=== PATIENT | female | born 1990 | race Caucasian/White ===

== ENCOUNTER → 2019-12-30 14:39 | Outpatient (CLI) | payer MEDICAID, SELFPAY ==
--- NOTE | 2019-12-30 14:42 | DI.US.S_ITS ---
PROCEDURE: US OB >= 14 WEEKS FETUS INDICATIONS: 20 week anatomy scan OUTSIDE/PRIOR DATING DATA: Last menstrual period (LMP): Unknown. LMP-based estimated date of delivery (ANIBAL): Unknown. First dating scan (date and location): 10/22/19. Estimated date of delivery (ANIBAL) from first dating scan: 04/22/20. TECHNIQUE: Real-time scanning was performed of the fetuses, with image documentation and biometric measurements. Endovaginal scanning: Not performed COMPARISON: [facility], , OB <= 14 WEEKS FETUS, 12/29/2019, 8:35. [facility], , OB >= 14 WEEKS FETUS, 12/16/2019, 8:21. FINDINGS: General: An intrauterine dichorionic and diamniotic twin is present, as evidenced by separate placentas, differing sexes, or an intervening membrane of greater than 2 mm. Maternal cervical canal: 4.5 cm long. Normal lower limit is 2.5 cm. FETUS A: Fetus is located on the maternal right side, and is in breech presentation. Largest amniotic fluid pocket: 3.7 cm; normal range is 2-8 cm. Placental position is posterior/right lateral, without previa. heart rate: 155 beats per minute. biometrics: Biparietal diameter: 5.9 cm, 24 weeks, zero day Head circumference: 21.6 cm, 23 weeks, 4 days Abdominal circumference: 19.4 cm, 24 weeks, zero day Femur length: 4.3 cm, 24 weeks, 2 days Estimated gestational age from initial scan: 23 weeks, 5 days Composite gestational age from present scan: 24 weeks, zero day Estimated weight and percentile: 646 g, 53% Measurement variability for biometric dating: +/- 7 days from 14 weeks to 15 weeks 6 days gestation, +/- 10 days from 16 weeks to 21 weeks 6 days gestation, +/- 2 weeks from 22 weeks to 27 weeks 6 days gestation, +/- 3 weeks for 28 weeks gestation or later. weight reference: 4500 g or EFW >90/95% is considered macrosomia or large for gestational age. EFW <10% is small for gestational age. EFW 5% or less is considered intra-uterine growth restriction. Anatomic survey: Neuro: Ventricles are normal at less than 10 mm. Cisterna magna is normal at 3-11 mm. Cerebellum is normal in size and morphology. Nuchal skin fold: Normal at less than 6 mm between 14 and 21 weeks gestational age. Face: Nose and lips, facial profile are normal. Spine: No evidence for spina bifida. Heart: 4 chambered heart is present, with normal ventricular outflow tracts. Diaphragm: Diaphragm is intact. Stomach: Left-sided stomach is present. Kidneys: No hydronephrosis. Normal ranges are less than 5 mm in 2nd trimester, less than 7 mm in 3rd trimester. Cord: 3 vessel cord has orthotopic insertion. Bladder: Normal in size. Extremities: All 4 extremities are visualized. FETUS B: Fetus is located on the maternal left side, and is in breech presentation. Largest amniotic fluid pocket: 3.1 cm; normal range is 2-8 cm. Placental position is posterior left lateral, without previa. heart rate: 168 beats per minute. biometrics: Biparietal diameter: 6 cm, 24 weeks, 4 days Head circumference: 22 cm, 24 weeks, one day Abdominal circumference: 19.6 cm, 24 weeks, 2 days Femur length: 4.3 cm, 24 weeks, 2 days Estimated gestational age from initial scan: 23 weeks, 5 days. Composite gestational age from present scan: 24 weeks, one day Estimated weight and percentile: 678 g, 68% Measurement variability for biometric dating: +/- 7 days from 14 weeks to 15 weeks 6 days gestation, +/- 10 days from 16 weeks to 21 weeks 6 days gestation, +/- 2 weeks from 22 weeks to 27 weeks 6 days gestation, +/- 3 weeks for 28 weeks gestation or later. weight reference: 4500 g or EFW >90/95% is considered macrosomia or large for gestational age. EFW <10% is small for gestational age. EFW 5% or less is considered intra-uterine growth restriction. Anatomic survey: Neuro: Ventricles are normal at less than 10 mm. Cisterna magna is normal at 3-11 mm. Cerebellum is normal in size and morphology. Nuchal skin fold: Normal at less than 6 mm between 14 and 21 weeks gestational age. Face: Nose and lips, facial profile are normal. Spine: No evidence for spina bifida. Heart: 4 chambered heart is present, with normal ventricular outflow tracts. Diaphragm: Diaphragm is intact. Stomach: Left-sided stomach is present. Kidneys: No hydronephrosis. Normal ranges are less than 5 mm in 2nd trimester, less than 7 mm in 3rd trimester. Cord: 3 vessel cord has orthotopic insertion. Bladder: Normal in size. Extremities: All 4 extremities are visualized. IMPRESSION: 1. Twin live intrauterine as described in detail above. Normal amount of amniotic fluid. Normal growth. 2. Normal anatomic survey for both fetus. Dictated by: Ministerio Zamora M.D. on 12/31/2019 at 9:41 Approved by: Ministerio Zamora M.D. on 12/31/2019 at 9:50
== END ==
PROVIDERS: Referring Provider Specialist; Visit Provider Specialist
DX: Z36.89 Encounter for other specified antenatal screening (principal); O30.049 Twin pregnancy, dichorionic/diamniotic, unspecified trimester; Z3A.24 24 weeks gestation of pregnancy
CPT/HCPCS: 76811; 76812

== ENCOUNTER → 2020-01-12 14:31 | Outpatient (CLI) | payer MEDICAID, SELFPAY ==
[2020-01-12 16:36] LABS: Hematocrit 35.8 % (36-46); Hemoglobin 12.6 g/dL (12.0-16.0)
[2020-01-12 17:15] LABS: GTT (PREG) 1 Hour PP 50gm Dose 164 mg/dL (76-139)
== END ==
PROVIDERS: Referring Provider Specialist; Visit Provider Specialist
DX: Z34.02 Encounter for supervision of normal first pregnancy, second trimester (principal); Z3A.24 24 weeks gestation of pregnancy
CPT/HCPCS: 36415; 82950; 85014; 85018; 86850

== ENCOUNTER → 2020-01-16 08:22 | Outpatient (CLI) | payer MEDICAID, SELFPAY ==
[2020-01-16 10:39] LABS: Glucose Fasting Gestational 64 mg/dL (76-95)
[2020-01-16 11:22] LABS: Glucose 1 Hour Gest 119 mg/dL (76-180)
[2020-01-16 11:53] LABS: Glucose Tol Interp,Gestational INTERPRETATION
[2020-01-16 12:23] LABS: Glucose 2 Hour Gest 116 mg/dL (76-155)
[2020-01-16 12:45] LABS: Glucose 3 Hour Gest 92 mg/dL (76-140)
== END ==
PROVIDERS: Referring Provider Specialist; Visit Provider Specialist
DX: O99.810 Abnormal glucose complicating pregnancy (principal)
CPT/HCPCS: 36415; 82951; 82952

== ENCOUNTER → 2020-03-19 11:23 | Outpatient (CLI) | payer MEDICAID, SELFPAY ==
[2020-03-20 17:30] LABS: Strep Grp B PCR NEG for Grp B Strep
== END ==
PROVIDERS: Visit Provider Specialist
DX: Z34.03 Encounter for supervision of normal first pregnancy, third trimester (principal); Z3A.35 35 weeks gestation of pregnancy
CPT/HCPCS: 87653

== ENCOUNTER 2020-03-19 11:53 | Outpatient (CLI) | payer MEDICAID, SELFPAY ==
--- NOTE | 2020-03-19 12:30 | PM.OBTRLD ---
Visit Information Visit Information Date of evaluation: 03/19/20 Primary OB Provider: Cristina Jackson Reason for Evaluation: Yes non-stress test non-stress test reason: other (Twin gestation) Vital Signs Vital Signs: Blood pressure 120/70, pulse of 82, temperature 97.6? 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) special ana needs: Yes ( [employer]- [employer] [place]) do you feel safe at home: Yes Smoking Status: Never smoker substance use type: marijuana (cutting back) well-balanced diet: daily or most days Type(s) of exercise: walking Evaluation Evaluation Baseline heart rate: 150 (Both) Variability: Moderate (11-25) (Both) monitor accelerations: Present (Both) monitor decelerations: Absent (Both) Contraction Frequency (minutes): 0 Category of Tracing: I (Both) Diagnosis, Plan/Disposition Final Diagnosis (1) Dichorionic diamniotic twin gestation: Status: Acute (2) 35 weeks gestation of : Status: Acute Plan/Disposition Plan: Reactive nonstress test OB Disposition: home
== END 2020-03-19 12:30 | disposition home or self-care (01) ==
LOC: LABOR 12:01 → OB 03-22 15:24
PROVIDERS: Referring Provider Specialist; Visit Provider Specialist
DX: O30.043 Twin pregnancy, dichorionic/diamniotic, third trimester (principal); Z3A.35 35 weeks gestation of pregnancy
CPT/HCPCS: 59025; 87653; G0378; G0379

== ENCOUNTER 2020-03-26 14:30 | Outpatient (CLI) | payer MEDICAID, SELFPAY ==
--- NOTE | 2020-03-26 15:11 | P.TNLD_ITS ---
Visit Information Visit Information Date of evaluation: 03/26/20 Primary OB Provider: Cristina Jackson Reason for Evaluation: Yes non-stress test non-stress test reason: other (Twins at 36 weeks) [facility] Medical History (Updated 03/26/20 @ 15:13 by Cristina Jackson MD) Acne (Chronic) Asthma (Chronic) Chicken pox (Resolved) Surgical History (Updated 11/18/19 @ 20:58 by Monica Strong) Anesthesia (Resolved) H/O breast biopsy (Acute ~07/2008) Family History (Updated 11/18/19 @ 20:59 by Monica Strong) Father Hypothyroid Grandmother Diabetes mellitus Social History marital status: unmarried,living together household members: significant other lives independently: Yes housing: house pets and animals: Yes (Cat) 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) special ana needs: Yes ( [employer]- [employer] [place]) do you feel safe at home: Yes Smoking Status: Never smoker substance use type: marijuana (cutting back) well-balanced diet: daily or most days Type(s) of exercise: walking Evaluation Evaluation Baseline heart rate: 130 (Both) Variability: Moderate (11-25) (Both) monitor accelerations: Present (Both) monitor decelerations: Absent (Both) Contraction Frequency (minutes): 0 Category of Tracing: I (Both) Diagnosis, Plan/Disposition Final Diagnosis (1) Dichorionic diamniotic twin gestation: Status: Acute (2) 36 weeks gestation of : Status: Acute Plan/Disposition Plan: Weekly follow-up OB Disposition: home
== END 2020-03-26 15:16 | disposition home or self-care (01) ==
LOC: OB 03-29 10:46
PROVIDERS: Referring Provider Specialist; Visit Provider Specialist
DX: O30.043 Twin pregnancy, dichorionic/diamniotic, third trimester (principal); Z3A.36 36 weeks gestation of pregnancy
CPT/HCPCS: 59025; G0378; G0379

== ENCOUNTER → 2020-03-29 15:16 | Outpatient (CLI) | payer MEDICAID, SELFPAY ==
[2020-03-29 16:19] LABS: Add Manual Diff / Slide Review NO; Basophils Absolute Auto 0 /uL (0-100); Basophils Percent Auto 0.3 % (0-2); Eosinophils Absolute Auto 0 /uL (0-450); Eosinophils Percent Auto 0.4 % (2-4); Hematocrit 34.7 % (36-46); Hemoglobin 12.1 g/dL (12.0-16.0); Lymphocytes Absolute Auto 1500 /uL (1100-4500); Lymphocytes Percent Auto 17.3 % (25-40); Mean Corpuscular HGB Conc 34.8 % (30-36); Mean Corpuscular Hemoglobin 32.9 PG (26-34); Mean Corpuscular Volume 94.4 fL (80-100); Monocytes Absolute Auto 600 /uL (0-900); Monocytes Percent Auto 6.7 % (3-14); Neutrophils Absolute Auto 6700 /uL (1500-7000); Neutrophils Percent Auto 75.3 % (50-75); Platelet Count 132 X10^3/uL (150-400); Red Blood Cell Count 3.68 X10^6/uL (4.0-5.2)
[2020-03-29 16:33] LABS: Alanine Aminotransferase 10 IU/L (<35); Aspartate Aminotransferase 24 IU/L (14-36); BUN Creatinine Ratio 17.9 (6-22); Blood Urea Nitrogen 10 mg/dL (7-17); Estimated Glomerular Filt Rate > 60.0 mL/min (>60); Uric Acid 5.1 mg/dL (2.5-6.2)
== END ==
PROVIDERS: Referring Provider Specialist; Visit Provider Specialist
DX: O16.3 Unspecified maternal hypertension, third trimester (principal)
CPT/HCPCS: 36415; 82565; 84450; 84460; 84520; 84550; 85025

== ENCOUNTER 2020-04-02 14:34 | Outpatient (CLI) | payer MEDICAID, SELFPAY ==
--- NOTE | 2020-04-02 14:59 | P.TNLD_ITS ---
Visit Information Visit Information Date of evaluation: 04/02/20 Primary OB Provider: Cristina Jackson Reason for Evaluation: Yes non-stress test non-stress test reason: hypertension/pre-eclampsia and other (37 week twins) Vital Signs Vital Signs: Blood pressure 132/85, pulse of 80, [facility] Medical History (Updated 04/02/20 @ 15:00 by Cristina Jackson MD) Acne (Chronic) Asthma (Chronic) Chicken pox (Resolved) Surgical History (Updated 11/18/19 @ 20:58 by Monica Strong) Anesthesia (Resolved) H/O breast biopsy (Acute ~07/2008) Family History (Updated 11/18/19 @ 20:59 by Monica Strong) Father Hypothyroid Grandmother Diabetes mellitus Social History marital status: unmarried,living together household members: significant other lives independently: Yes housing: house pets and animals: Yes (Cat) 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) special ana needs: Yes ( [employer]- [facility] [employer] [place]) do you feel safe at home: Yes Smoking Status: Never smoker substance use type: marijuana (cutting back) well-balanced diet: daily or most days Type(s) of exercise: walking Evaluation Evaluation Baseline heart rate: 130 (Both ) Variability: Moderate (11-25) (Both) monitor accelerations: Present (Both) monitor decelerations: Absent (Both) Contraction Frequency (minutes): 0 Diagnosis, Plan/Disposition Final Diagnosis (1) 37 weeks gestation of : Status: Acute (2) Hypertension affecting in third trimester: Status: Acute (3) Dichorionic diamniotic twin gestation: Status: Acute Plan/Disposition Plan: Patient is scheduled for induction in 5 days OB Disposition: home
== END 2020-04-02 15:00 | disposition home or self-care (01) ==
LOC: LABOR 15:31 → OB 04-05 15:28
PROVIDERS: Referring Provider Specialist; Visit Provider Specialist
DX: O30.043 Twin pregnancy, dichorionic/diamniotic, third trimester (principal); O16.3 Unspecified maternal hypertension, third trimester; Z3A.37 37 weeks gestation of pregnancy
CPT/HCPCS: 36415; 59025; 82565; 84450; 84460; 84520; 84550; 85025; G0378; G0379

== ENCOUNTER → 2020-04-02 16:19 | Outpatient (CLI) | payer MEDICAID, SELFPAY ==
[2020-04-02 16:50] LABS: Add Manual Diff / Slide Review NO; Basophils Absolute Auto 100 /uL (0-100); Basophils Percent Auto 0.6 % (0-2); Eosinophils Absolute Auto 0 /uL (0-450); Eosinophils Percent Auto 0.3 % (2-4); Hematocrit 34.7 % (36-46); Lymphocytes Absolute Auto 1700 /uL (1100-4500); Lymphocytes Percent Auto 18.4 % (25-40); Mean Corpuscular HGB Conc 34.6 % (30-36); Mean Corpuscular Hemoglobin 32.7 PG (26-34); Mean Corpuscular Volume 94.6 fL (80-100); Monocytes Absolute Auto 700 /uL (0-900); Monocytes Percent Auto 7.1 % (3-14); Neutrophils Absolute Auto 7000 /uL (1500-7000); Neutrophils Percent Auto 73.6 % (50-75); Platelet Count 127 X10^3/uL (150-400); Red Blood Cell Count 3.67 X10^6/uL (4.0-5.2); Red Cell Distribution Width 13.1 % (11.6-14.8); White Blood Cell Count 9.5 X10^3/uL (4.5-11.0)
[2020-04-02 17:04] LABS: Alanine Aminotransferase 11 IU/L (<35); Aspartate Aminotransferase 26 IU/L (14-36); BUN Creatinine Ratio 16.9 (6-22); Blood Urea Nitrogen 11 mg/dL (7-17); Estimated Glomerular Filt Rate > 60.0 mL/min (>60); Uric Acid 4.9 mg/dL (2.5-6.2)
== END ==
PROVIDERS: Referring Provider Specialist; Visit Provider Specialist
DX: O16.3 Unspecified maternal hypertension, third trimester (principal); Z3A.37 37 weeks gestation of pregnancy
CPT/HCPCS: 36415; 82565; 84450; 84460; 84520; 84550; 85025

== ENCOUNTER → 2020-04-03 13:39 | Outpatient (CLI) | payer MEDICAID, SELFPAY ==
[2020-04-04 18:24] LABS: COVID19 Sendout Not Detected (Not Detect)
== END ==
PROVIDERS: Visit Provider Physician Assistant
DX: Z01.812 Encounter for preprocedural laboratory examination (principal)
CPT/HCPCS: 87635

== ENCOUNTER 2020-04-04 13:42 | Outpatient (CLI) | payer MEDICAID, SELFPAY | END 2020-04-04 14:06 | disposition home or self-care (01) | LOC: LABOR 14:06 → OB 04-05 15:30 | PROVIDERS: Referring Provider Specialist; Visit Provider Specialist | CPT/HCPCS: 59025; G0378; G0379 ==

== ENCOUNTER 2020-04-05 19:33 | Inpatient (IN) | payer MEDICAID, SELFPAY ==
[2020-04-05] MEDS: DINOPROSTONE VAG (CERVIDIL) 10 MG VAG (20:30)
[2020-04-05 20:33] LABS: Add Manual Diff / Slide Review NO; Basophils Absolute Auto 0 /uL (0-100); Basophils Percent Auto 0.5 % (0-2); Eosinophils Absolute Auto 0 /uL (0-450); Eosinophils Percent Auto 0.4 % (2-4); Hematocrit 33.5 % (36-46); Hemoglobin 11.5 g/dL (12.0-16.0); Lymphocytes Absolute Auto 1700 /uL (1100-4500); Lymphocytes Percent Auto 19.3 % (25-40); Mean Corpuscular HGB Conc 34.3 % (30-36); Mean Corpuscular Hemoglobin 32.6 PG (26-34); Mean Corpuscular Volume 95.1 fL (80-100); Monocytes Absolute Auto 700 /uL (0-900); Monocytes Percent Auto 7.8 % (3-14); Neutrophils Absolute Auto 6200 /uL (1500-7000); Platelet Count 119 X10^3/uL (150-400); Red Blood Cell Count 3.53 X10^6/uL (4.0-5.2); Red Cell Distribution Width 13.1 % (11.6-14.8); White Blood Cell Count 8.6 X10^3/uL (4.5-11.0)
[2020-04-05 21:57] VITALS: BP 131/82
[2020-04-06] MEDS: ZOLPIDEM 5 MG TABLET PO (02:12)
[2020-04-06] MEDS: LACTATED RINGERS 1,000 ML 100 ML IV (08:32)
[2020-04-06] MEDS: OXYTOCIN PREMIX 30 UNIT/500 ML PLAST..BAG IV (08:33)
--- NOTE | 2020-04-06 10:01 | PM.OBHP.1 ---
OB HPI Date/Time Date of admission: 04/05/20 Date Patient Seen: 04/06/20 Time Patient Seen: 10:01 History of Present Condition Chief complaint: maternity : 1 Para: 0 Estimated Date of Delivery: 04/22/20 Estimated Gestational Age (weeks): 37 Narrative: Milena Whaley is a 29 year old female admitted for induction for twins with gestational hypertension Indications Indication for induction OB: medical complication (Gestational hypertension) History of Present care: good care Dating criteria: LMP confirmed by 1st trimester US Ultrasounds: normal mid trimester US Obstetrical complications: gestational hypertension Medical complications: none Preadmission Labs Blood type: 0 (-) negative -: Antibody screen: negative, GBS status: negative, HBsAG: negative, HIV: negative and RPR/VDLR: negative -: Chlamydia screen: not detected and Gonorrhea screen: not detected -: Rubella: immune HCAB: negative 1 hr GTT: 164 3 hr GTT: 1 hr (119), 2 hr (116) and 3 hr (92) Fasting blood glucose: 64 Evaluation Evaluation Baseline heart rate: 135 (Both) Variability: Moderate (11-25) (Both) monitor accelerations: Present (Both) monitor decelerations: Absent (Both) Contraction Frequency (minutes): 3 Uterine Contraction Intensity: Mild Category of Tracing: I Cervical dilation (cm): 1 Cervical effacement (%): 50 station: -1 Laboratory results: Laboratory Tests 04/05/20 04/05/20 20:00 20:00 WBC 8.6 RBC 3.53 L Hgb 11.5 L Hct 33.5 L MCV 95.1 MCH 32.6 MCHC 34.3 RDW 13.1 Plt Count 119 L Neut % (Auto) 72.0 Lymph % (Auto) 19.3 L [place] % (Auto) 7.8 Eos % (Auto) 0.4 L Baso % (Auto) 0.5 Neut # (Auto) 6200 Lymph # (Auto) 1700 [place] # (Auto) 700 Eos # (Auto) 0 Baso # (Auto) 0 Blood Type O Negative Antibody Screen Negative [facility] Medical History (Updated 04/02/20 @ 15:00 by Cristina Jackson MD) Acne (Chronic) Asthma (Chronic) Chicken pox (Resolved) Surgical History (Updated 11/18/19 @ 20:58 by Monica Strong) Anesthesia (Resolved) H/O breast biopsy (Acute ~07/2008) Family History (Updated 11/18/19 @ 20:59 by Monica Strong) Father Hypothyroid Grandmother Diabetes mellitus Social History marital status: unmarried,living together household members: significant other lives independently: Yes housing: house pets and animals: Yes (Cat) occupational status: employed ([employer]) special ana needs: Yes ( [employer]- [facility] [place]) do you feel safe at home: Yes Smoking Status: Never smoker substance use type: marijuana (cutting back) well-balanced diet: daily or most days Type(s) of exercise: walking Meds Home Medications and Allergies Home Medications Medication Instructions Recorded Confirmed Type prenat.vits,lee ann,[id number] 1 tab PO DAILY 10/14/19 04/06/20 History aspirin 81 mg tablet,delayed 81 mg PO DAILY 02/02/20 04/06/20 History release Allergies Allergy/AdvReac Type Severity Reaction Status Date / Time No Known Drug Allergies Allergy Verified 03/29/20 14:32 Review of Systems Review of Systems Narrative: Patient denies headaches, scotomata, epigastric pain. No leakage of fluid. Good movement. ROS: Yes All systems reviewed with the patient and are negative except as otherwise documented Exam Vital Signs (past 8 hours): Blood pressure 125/89, pulse of 85, temperature 36? point Narrative Exam Narrative: HEENT exam within normal limits. Lungs are clear to auscultation and percussion. Heart is regular rate and rhythm no S3-S4 or murmurs. Abdomen is gravid. Fetus is are vertex/vertex. +1 to 2 edema with normal DTRs. Extremities nontender. Objective Labs Result Diagrams: 04/05/20 20:00 Labs: Laboratory Results - last 24 hr 04/05/20 04/05/20 20:00 20:00 WBC 8.6 RBC 3.53 L Hgb 11.5 L Hct 33.5 L MCV 95.1 MCH 32.6 MCHC 34.3 RDW 13.1 Plt Count 119 L Neut % (Auto) 72.0 Lymph % (Auto) 19.3 L [place] % (Auto) 7.8 Eos % (Auto) 0.4 L Baso % (Auto) 0.5 Neut # (Auto) 6200 Lymph # (Auto) 1700 [place] # (Auto) 700 Eos # (Auto) 0 Baso # (Auto) 0 Blood Type O Negative Antibody Screen Negative Assessment and Plan Assessment and Plan Assessment and Plan narrative: 37 week 4 day a dichorionic diamniotic twin gestation with gestational hypertension admitted for induction. Plan is for epidural when needed and anticipate vaginal delivery. Patient will be monitored for worsening signs or symptoms of preeclampsia. Time Spent with Patient Total time spent with greater than 50% in coordination of care (as documented) at patient's floor/unit and/or counseling patient:: less than 15 minutes
--- NOTE | 2020-04-06 17:10 | PM.OBPNLAB ---
Date/Time Date Patient Seen: 04/06/20 Time Patient Seen: 17:11 Pain Control Pain control: tolerating well Pelvic Exam Dilation (cm): 1 Effacement (%): 80 station: -1 Amniotic membrane status: Intact Contractions Contractions on admission: none Monitor mode: External Pitocin rate (mU/min): 17 Contraction frequency (min): 2 Contraction duration (min): 1 Contraction pattern: Regular Contraction intensity: Mild Status status: Category l Heart Rate Baseline: 130 (Both) Monitor Accelerations: Present (Both) Monitor Decelerations: Absent (Both) Monitor Variability: Moderate (Both) Assessment and Plan Assessment: induction ongoing (Patient with no change despite Pitocin for 10 hours) Plan: other (Will stop Pitocin and rest overnight and restart with either Jimenez bulb or Pitocin in the morning)
--- NOTE | 2020-04-07 05:22 | PM.OBPNLAB ---
Date/Time Date Patient Seen: 04/07/20 Time Patient Seen: 05:23 Pain Control Pain control: tolerating well Pelvic Exam Dilation (cm): 1 Effacement (%): 80 station: -1 Amniotic membrane status: Intact Contractions Contractions on admission: none Monitor mode: External Contraction pattern: Absent Status status: Category l Heart Rate Baseline: 130 (Both) Monitor Accelerations: Present (Both) Monitor Decelerations: Absent (Both) Monitor Variability: Moderate (Both) Assessment and Plan Assessment: induction ongoing (Jimenez bulb placed)
[2020-04-07] MEDS: LACTATED RINGERS 1,000 ML 100 ML IV ×4 (07:15→19:52)
[2020-04-07] MEDS: FENT 2MCG/ML BUPIV 0.125% EPI 200 MCG/100 ML PLAST..BAG 10 MCG EPIDURAL (10:31)
[2020-04-07] MEDS: FENT 2MCG/ML BUPIV 0.125% EPI 200 MCG/100 ML PLAST..BAG 12 MCG EPIDURAL (15:42)
[2020-04-07 17:08] VITALS: BP 142/97; PULSE 93
[2020-04-07] MEDS: LABETALOL 20 MG/4 ML SYRINGE IV ×2 (17:08→18:50)
[2020-04-07 18:50] VITALS: BP 133/94; PULSE 92
--- NOTE | 2020-04-07 19:26 | PM.OBPNLAB ---
Date/Time Date Patient Seen: 04/07/20 Time Patient Seen: 19:26 Pain Control Pain control: epidural Pelvic Exam Dilation (cm): 10 Effacement (%): 100 station: -1 Amniotic membrane status: Ruptured Contractions Contractions on admission: regular Monitor mode: Internal Pitocin rate (mU/min): 15 Contraction frequency (min): 3 Contraction duration (min): 1 Contraction pattern: Regular Contraction intensity: Moderate Intrauterine tone measurement: 45 Status status: Category l Heart Rate Baseline: 140 (Both) Monitor Accelerations: Present (Both) Monitor Decelerations: Absent (Both) Monitor Variability: Moderate Assessment and Plan Assessment: active labor Comments: Patient's blood pressure has continued to be somewhat labile. She has recede 2 doses of IV labetalol. Her urine output has decrease in there is blood in her Jimenez catheter now. She denies headaches or scotomata. Will repeat PIH labs now. Patient has an elevated temperature now.
[2020-04-07 19:51] LABS: Add Manual Diff / Slide Review NO; Basophils Absolute Auto 100 /uL (0-100); Basophils Percent Auto 0.5 % (0-2); Eosinophils Absolute Auto 0 /uL (0-450); Eosinophils Percent Auto 0.1 % (2-4); Hematocrit 36.4 % (36-46); Hemoglobin 12.4 g/dL (12.0-16.0); Lymphocytes Absolute Auto 1000 /uL (1100-4500); Mean Corpuscular Hemoglobin 32.3 PG (26-34); Mean Corpuscular Volume 95.1 fL (80-100); Monocytes Absolute Auto 1100 /uL (0-900); Monocytes Percent Auto 7.6 % (3-14); Neutrophils Absolute Auto 12500 /uL (1500-7000); Neutrophils Percent Auto 84.8 % (50-75); Platelet Count 142 X10^3/uL (150-400); Red Blood Cell Count 3.82 X10^6/uL (4.0-5.2); White Blood Cell Count 14.7 X10^3/uL (4.5-11.0)
[2020-04-07 19:57] LABS: INR 0.9 (0.9-1.3); Prothrombin Time 10.3 SECONDS (10.1-12.7)
[2020-04-07 20:02] LABS: Alanine Aminotransferase 18 IU/L (<35); Albumin 3.1 g/dL (3.5-5.0); Alkaline Phosphatase 231 U/L (38-126); Aspartate Aminotransferase 30 IU/L (14-36); BUN Creatinine Ratio 14.3 (6-22); Bilirubin Total 0.7 mg/dL (0.2-1.3); Bilirubin Unconjugated 0.7 mg/dL (0.0-1.1); Blood Urea Nitrogen 14 mg/dL (7-17); Calcium 8.4 mg/dL (8.4-10.2); Carbon Dioxide 16 mmol/L (22-32); Chloride 107 mmol/L (98-107); Estimated Glomerular Filt Rate > 60.0 mL/min (>60); Glucose 81 mg/dL (70-100); HEMOLYSIS < 15 (0-50); Potassium 4.4 mmol/L (3.4-5.1); Sodium 133 mmol/L (137-145); Total Protein 6.1 g/dL (6.3-8.2)
--- NOTE | 2020-04-07 22:29 | PM.OBPRVD ---
Events: Induced HTN and Labor Induction Labor & Delivery Delivery date: 04/07/20 Intrapartal events: Multiple Gestation (Dichorionic diamniotic twins) Cervical ripening method: per Cervidil protocol (Followed by Jimenez bulb) Induction method: per pitocin protocol Delivery monitor: external FHT, external uterine and internal uterine Route of delivery: forceps (Vacuum follow-up by outlet forceps for twin A with spontaneous vaginal delivery twin B) Indication for instrumentation: nonreassuring FHR tracing L&D Laceration Description: Perineal - 2nd Degree and Vaginal - 2nd Degree Delivery repair: chromic (3 0) Estimated blood loss (mL): 400 Anesthesia type: Epidural Narrative: Patient arrived on Labor and delivery for induction for at 37 weeks with complicated by dichorionic diamniotic twin gestation with gestational hypertension. She received Cervidil followed by Pitocin without progress in labor. She rested overnight the next night and then had Jimenez bulb placed with Pitocin started afterwards. She received an epidural catheter for pain control. She was AROM for clear fluid. She had minimal change in labor so a internal toco was placed. She progressed to complete dilation. After 2 hours of pushing there was not significant change in baby position and mom was getting fatigue so decision was made to assist with delivery however as we were preparing the baby a is heart rate began having severe variables with slow return to baseline. The vacuum was placed for 3 contractions but it kept popping off due to the caput. The fetus was brought down to the +2 station. With heart tones low decision was made to proceed with forceps. Outlet forceps were placed in the delivered over an intact perineum and was placed on the maternal abdomen. After the cord stopped pulsating the cord was clamped, cut, and cord bloods obtained. Decision was made to take the baby boy to the warmer. The patient fairly quickly began feeling the urge to push and brought the baby B down to safe area to AROM for clear fluid. With just a couple more pushes she delivered spontaneously and the viable female infant was placed on maternal abdomen. After the cord stopped pulsating the cord was clamped, cut, and cord bloods obtained. The placentas delivered spontaneously intact with 3 vessels for both placentas. There is a second-degree vaginal and second-degree perineal tear that were repaired with 3 0 chromic suture in the usual 2 layer fashion. Estimated blood loss was approximately 400 cc. This is somewhat difficult to tell due to the twin B AROM of clear fluid that was not noted before and after blood loss. Both and mother doing well. [place] Baby 1: gender: Male Presentation: vertex position: Right Occiput Posterior Placenta delivery description: Spontaneous cord vessel description: 3 Vessels score (1 min): 6 score (5 min): 8 2: Infant gender: Female Presentation: vertex position: Right Occiput Anterior Placenta delivery description: Spontaneous cord vessel description: 3 Vessels score (1 min): 8 score (5 min): 9 Plan for aftercare: Routine post vaginal delivery
[2020-04-07 23:07] VITALS: BP 151/95; PULSE 85
[2020-04-07] MEDS: LABETALOL 100 MG TABLET 200 MG PO (23:07)
[2020-04-08 01:26] VITALS: BP 131/78
[2020-04-08] MEDS: IBUPROFEN 600 MG TABLET PO ×4 (02:08→22:11)
[2020-04-08] MEDS: DERMOPLAST SPRAY 20% 60 ML 1 SPRAY TOP (02:09)
[2020-04-08 03:38] VITALS: TEMP 38.4
[2020-04-08] MEDS: ACETAMINOPHEN 325 MG TABLET 650 MG PO (03:38)
[2020-04-08 07:17] LABS: Add Manual Diff / Slide Review NO; Basophils Absolute Auto 0 /uL (0-100); Basophils Percent Auto 0.2 % (0-2); Eosinophils Absolute Auto 0 /uL (0-450); Hematocrit 25.7 % (36-46); Hemoglobin 8.9 g/dL (12.0-16.0); Lymphocytes Absolute Auto 1200 /uL (1100-4500); Lymphocytes Percent Auto 6.8 % (25-40); Mean Corpuscular HGB Conc 34.9 % (30-36); Mean Corpuscular Hemoglobin 32.9 PG (26-34); Mean Corpuscular Volume 94.3 fL (80-100); Monocytes Absolute Auto 1200 /uL (0-900); Monocytes Percent Auto 6.9 % (3-14); Neutrophils Absolute Auto 14800 /uL (1500-7000); Neutrophils Percent Auto 86.1 % (50-75); Platelet Count 93 X10^3/uL (150-400); Red Blood Cell Count 2.72 X10^6/uL (4.0-5.2); Red Cell Distribution Width 13.3 % (11.6-14.8); White Blood Cell Count 17.1 X10^3/uL (4.5-11.0)
[2020-04-08] MEDS: DOCUSATE 100 MG CAPSULE PO (08:29)
[2020-04-08] MEDS: FERROUS GLUCONATE 324 MG TABLET PO (08:29)
[2020-04-08] MEDS: FUROSEMIDE 20 MG TABLET PO (08:29)
[2020-04-08] MEDS: PRENATAL VIT,CALC/IRON/FOLIC 1 TABLET 1 TAB PO (08:29)
--- NOTE | 2020-04-08 17:53 | P.PNOB_ITS ---
Subjective - OB Subjective Patient comments: no complaints, pain well controlled and tolerating diet baby status: doing well and nursing well feeding status: exclusively breast feeding Date Patient Seen: 04/08/20 Time Patient Seen: 17:53 Interval history: Patient is day 1. Vacuum followed by forceps assisted vaginal delivery for twin a and vaginal delivery for twin B. She was induced for hypertension. She denies any headaches, scotomata, epigastric pain. She continues to have significant edema of both legs. She feels well otherwise Exam Vital Signs (past 8 hours): Blood pressure 135/85, pulse of 90, temperature 37? Narrative Exam Narrative: Abdomen is soft, nontender. Uterus is firm, at U, nontender. Lochia is mild to moderate. Extremities with 2+ edema and nontender. Objective Labs Result Diagrams: 04/08/20 06:47 04/07/20 19:45 Labs: Laboratory Results - last 24 hr 04/07/20 04/07/20 04/07/20 19:45 19:45 19:45 WBC 14.7 H D RBC 3.82 L Hgb 12.4 Hct 36.4 MCV 95.1 MCH 32.3 MCHC 34.0 RDW 13.0 Plt Count 142 L Neut % (Auto) 84.8 H Lymph % (Auto) 7.0 L [place] % (Auto) 7.6 Eos % (Auto) 0.1 L Baso % (Auto) 0.5 Neut # (Auto) 88301 H Lymph # (Auto) 1000 L [place] # (Auto) 1100 H Eos # (Auto) 0 Baso # (Auto) 100 PT 10.3 INR 0.9 Sodium 133 L Potassium 4.4 Chloride 107 Carbon Dioxide 16 L BUN 14 Creatinine 0.98 Estimated GFR > 60.0 BUN/Creatinine Ratio 14.3 Glucose 81 Calcium 8.4 Total Bilirubin 0.7 Conjugated Bilirubin 0.0 Unconjugated Bilirubin 0.7 AST 30 ALT 18 Alkaline Phosphatase 231 H Total Protein 6.1 L Albumin 3.1 L Globulin 3.0 Albumin/Globulin Ratio 1.0 04/08/20 06:47 WBC 17.1 H RBC 2.72 L Hgb 8.9 L Hct 25.7 L MCV 94.3 MCH 32.9 MCHC 34.9 RDW 13.3 Plt Count 93 L Neut % (Auto) 86.1 H Lymph % (Auto) 6.8 L [place] % (Auto) 6.9 Eos % (Auto) 0.0 L Baso % (Auto) 0.2 Neut # (Auto) 94901 H Lymph # (Auto) 1200 [place] # (Auto) 1200 H Eos # (Auto) 0 Baso # (Auto) 0 PT INR Sodium Potassium Chloride Carbon Dioxide BUN Creatinine Estimated GFR BUN/Creatinine Ratio Glucose Calcium Total Bilirubin Conjugated Bilirubin Unconjugated Bilirubin AST ALT Alkaline Phosphatase Total Protein Albumin Globulin Albumin/Globulin Ratio Assessment & Plan Assessment and Plan (1) Forceps or vacuum extractor delivery: Status: Acute (2) Hypertension affecting in third trimester: Status: Acute Plan day: 1 plan OB: routine care Comments: Monitor for worsening preeclampsia. Time Spent With Patient Time: Total time spent is greater than 50% in coordination of care (as documented) at patient's floor/unit and/or counseling patient: Time with patient: less than 15 minutes
[2020-04-09] MEDS: IBUPROFEN 600 MG TABLET PO ×2 (03:58→10:11)
[2020-04-09 07:06] LABS: Add Manual Diff / Slide Review NO; Basophils Absolute Auto 100 /uL (0-100); Basophils Percent Auto 0.4 % (0-2); Eosinophils Absolute Auto 100 /uL (0-450); Eosinophils Percent Auto 0.9 % (2-4); Hemoglobin 8.9 g/dL (12.0-16.0); Lymphocytes Absolute Auto 1800 /uL (1100-4500); Lymphocytes Percent Auto 12.8 % (25-40); Mean Corpuscular HGB Conc 34.2 % (30-36); Mean Corpuscular Hemoglobin 32.5 PG (26-34); Mean Corpuscular Volume 95.1 fL (80-100); Monocytes Absolute Auto 1000 /uL (0-900); Monocytes Percent Auto 7.3 % (3-14); Neutrophils Absolute Auto 11100 /uL (1500-7000); Neutrophils Percent Auto 78.6 % (50-75); Platelet Count 91 X10^3/uL (150-400); Red Blood Cell Count 2.73 X10^6/uL (4.0-5.2); Red Cell Distribution Width 13.2 % (11.6-14.8); White Blood Cell Count 14.1 X10^3/uL (4.5-11.0)
[2020-04-09 07:24] LABS: Aspartate Aminotransferase 48 IU/L (14-36)
[2020-04-09 07:25] LABS: Carbon Dioxide 22 mmol/L (22-32); Chloride 113 mmol/L (98-107); HEMOLYSIS < 15 (0-50); Potassium 4.3 mmol/L (3.4-5.1); Sodium 138 mmol/L (137-145)
--- NOTE | 2020-04-09 09:31 | P.DS_ITS ---
Discharge Providers Provider Date of admission: 04/05/20 19:33 Discharge Date: 04/09/20 Consults: 04/06/20 07:42 Consult to Anesthesiology Urgent Comment: Consulting Provider: Anesthesiologist Reason for consultation: Epidural Has provider been notified: No 04/08/20 22:26 Consult to Signs Sales Representative Routine Comment: Discharge provider: Cristina Jackson MD Summary Hospital Course Date Patient Seen: 04/09/20 Time Patient Seen: 09:31 Procedures: Prostin, Jimenez bulb, Pitocin induction. Epidural catheter, forceps assisted vaginal delivery 1st twin followed by spontaneous vaginal delivery 2nd twin repair of second-degree tear Hospital Course: Patient was admitted for induction. 37 week gestation twins with probable mild preeclampsia. She had Cervidil followed by Pitocin with no change in her cervix so she had a Jimenez bulb viral by Pitocin induction. She went in to active labor. She received an epidural catheter for pain control. After over 2 hours of pushing baby a began having severe variables with slow return to baseline so decision was made to assist with delivery. The vacuum would not stay on the baby's head so forceps were placed and baby was delivered by forceps. Baby B delivered spontaneously. She had second-degree vaginal and perineal tears that were repaired. Patient denies any headaches, scotomata, epigastric pain. She is urinating well and ambulatory. Peripartum Data Delivery Method: Assisted Delivery (Vacuum followed by forceps delivery) Laceration description: Perineal - 2nd Degree (And vaginal second-degree) Procedures: Induction, epidural, at forceps followed by vaginal delivery of 2nd twin, repair of second-degree vaginal and perineal tear complications: none [place] 1: Gender: Male Disposition of : home 2: Gender: Female Disposition of : home Discharge Diagnosis (1) Forceps or vacuum extractor delivery: Status: Acute (2) Hypertension affecting in third trimester: Status: Acute (3) Acute blood loss anemia: Status: Acute (4) Dichorionic diamniotic twin gestation: Status: Acute Status at Discharge Cognitive/behavioral status at discharge: oriented Functional status at discharge: independent ambulation Overall status at discharge: patient is progressing back to baseline Time Spent with Patient Time attestation: Total time spent providing and/or coordinating discharge services: Time spent: Less than 30 minutes Objective Labs Result Diagrams: 04/09/20 06:55 04/09/20 06:55 Labs: Laboratory Results - last 24 hr 04/09/20 04/09/20 04/09/20 06:55 06:55 06:55 WBC 14.1 H RBC 2.73 L Hgb 8.9 L Hct 26.0 L MCV 95.1 MCH 32.5 MCHC 34.2 RDW 13.2 Plt Count 91 L Neut % (Auto) 78.6 H Lymph % (Auto) 12.8 L [place] % (Auto) 7.3 Eos % (Auto) 0.9 L Baso % (Auto) 0.4 Neut # (Auto) 56585 H Lymph # (Auto) 1800 [place] # (Auto) 1000 H Eos # (Auto) 100 Baso # (Auto) 100 Sodium 138 Potassium 4.3 Chloride 113 H Carbon Dioxide 22 AST 48 H Exam Vital Signs (past 8 hours): Blood pressure 130/81, pulse of 84, temperature 36.7? Narrative Exam Narrative: Abdomen is soft, nontender. Uterus is firm, at U, nontender. Mild lochia. Repair is intact. Patient continues to have 2+ edema although it is improving. Patient is rubella immune, patient is Rh negative but so are both babies so no RhoGAM is indicated, she received Tdap in the 3rd trimester Discharge Plan Discharge Plan Patient Disposition: Home Discharge orders & Medications Prescriptions: New docusate sodium [DOK] 100 mg Capsule 100 mg PO DAILY Qty: 30 RF: 0 ibuprofen 600 mg Tablet 600 mg PO Q6HR PRN (Reason: Pain, Mild (1-3)) Qty: 20 RF: 0 ferrous gluconate 324 mg (38 mg iron) Tablet 324 mg PO BID Qty: 60 RF: 0 Continued prenat.vits,lee ann,[id number] Tablet 1 tab PO DAILY RF: 0 Discontinued aspirin [Adult Aspirin Regimen] 81 mg tablet,delayed release (DR/EC) 81 mg PO DAILY RF: 0 Follow up/Referrals: Cristina Jackson MD [Physician] - 1 Month (Patient also have her blood pressure checked when she brings in the babies for evaluation on 04/12/20) Diet/Activity/Treatments Diet: Regular Activity: Nothing in vagina for 4 week Skin/Wound/Dressing Care Report to your healthcare provider any signs of infection, such as:: chills, fever and increased pain Visit Report/Discharge Packet Stand Alone Forms: Discharge: Care
== END 2020-04-09 11:41 | disposition home or self-care (01) | DRG 806 ==
PROVIDERS: Admitting Provider Specialist; Referring Provider Specialist; Visit Provider Specialist
DX: O13.4 Gestational [pregnancy-induced] hypertension without significant proteinuria, complicating childbirth (principal); D62 Acute posthemorrhagic anemia; Z37.2 Twins, both liveborn; D64.9 Anemia, unspecified; Z3A.37 37 weeks gestation of pregnancy; O70.1 Second degree perineal laceration during delivery; O26.813 Pregnancy related exhaustion and fatigue, third trimester; O76 Abnormality in fetal heart rate and rhythm complicating labor and delivery
CPT/HCPCS: 01967; 36415; 59025; 59050; 59200; 59409; 59410; 76815; 80051; 80053; 80076; 84450; 85025; 85610; 86850; 86900; 86901; G0379; J2590